=== PATIENT | male | born 1955 | race Asian ===

== ENCOUNTER 2016-10-30 16:12 | Emergency (ER) | payer OTHER ==
[~2016-10-30] VITALS: Ht 160 cm; Wt 63.6 kg
[2016-10-30] MEDS ORDERED: MELO-273 PO (16:30)
[2016-10-30] MEDS ORDERED: LOSA50TA37 PO (16:30)
[2016-10-30] MEDS ORDERED: METF500T4 PO (16:30)
[2016-10-30] MEDS ORDERED: GABA-529 PO (16:30)
[2016-10-30] MEDS ORDERED: AMOX500C2 PO (16:30)
[2016-10-30] MEDS ORDERED: ASPI-1093 PO (16:30)
[2016-10-30] MEDS ORDERED: SITA100 PO (16:30)
[2016-10-30] MEDS ORDERED: AMLO-512 PO (16:30)
[2016-10-30] MEDS ORDERED: ATOR10TA84 PO (16:30)
[2016-10-30] MEDS ORDERED: PIOG15TA13 PO (16:30)
[2016-10-30] MEDS ORDERED: LORA10TA7 PO (16:30)
[2016-10-30 16:31] LABS: GLUCOSE,POINT OF CARE 158 MG/DL (70-110)
[2016-10-30] MEDS ORDERED: SULFAMETHOX/TRIMETH DS 800-160 MG/TABLET PO ONE (16:45)
[2016-10-30] MEDS ORDERED: PERTUSS(ACELL),DIPH,TET VAC/PF 0.5 ML VIAL IM ONE (16:45)
[2016-10-30] MEDS ORDERED: BACITRACIN 0.9 GM PACKET OINTMENT TP ONE (16:45)
[2016-10-30] MEDS ORDERED: CEPHALEXIN MONOHYDRATE 500 MG CAPSULE PO ONE (16:45)
[2016-10-30 16:52] VITALS: BP 132/86
== END 2016-10-30 17:07 | disposition home or self-care (01) ==
LOC: EMS 16:14
DX: S80.812A Abrasion, left lower leg, initial encounter (principal); L08.9 Local infection of the skin and subcutaneous tissue, unspecified; E11.9 Type 2 diabetes mellitus without complications; E78.00 Pure hypercholesterolemia, unspecified; I10 Essential (primary) hypertension; Z79.82 Long term (current) use of aspirin; X58.XXXA Exposure to other specified factors, initial encounter; Y93.89 Activity, other specified; Y92.89 Other specified places as the place of occurrence of the external cause; Y99.8 Other external cause status
CPT/HCPCS: 82962; 90471; 90715; 96372; 99284

== ENCOUNTER → 2020-04-23 | Outpatient (CLI) | payer MEDICARE ==
[~2020-04-23] MED LIST: AMLO-258 PO; AMOX500C2 PO; ASPI-1111 PO; ATOR10TA84 PO; GABA-1216 PO; LORA10TA7 PO; LOSA50TA37 PO; MELO-107 PO; METF-960 PO; PIOG15TA6 PO; SITA100 PO
== END | disposition home or self-care (01) ==
LOC: RADMN 10:08
PROVIDERS: ATTEND Family Medicine
DX: I70.0 Atherosclerosis of aorta (principal); R91.8 Other nonspecific abnormal finding of lung field
CPT/HCPCS: 71046; 71046-TC